=== PATIENT | female | born 1955 | race African-American/Black ===

== ENCOUNTER 2017-03-27 08:13 | Outpatient (CLI) | payer BC ==
[~2017-03-27 08:13] MED LIST: FUROSEMIDE20 M1 ORAL; GERITOL COMPLE1 EACH PO; LEVOTHYROXINE25 MCG ORAL; METFORMIN HCL500 M1 ORAL; PROAIR HFA8.5 GM INH; TRIBENZOR 40-51 EAC1 ORAL
--- NOTE | 2017-03-27 12:31 | Diagnostic Imaging Report ---
Clinical Indication: Abdominal pain. History of partial hysterectomy and tubal ligation Technique: No oral contrast utilized, per emergency room physician request IV administration nonionic contrast. Venous phase spiral acquisition obtained through the abdomen and pelvis. Multiplanar reconstructions were generated. Total dose length product 119 mGycm. CTDIvol(s) 18 mGy. Dose reduction achieved using automated exposure control Comparison: None Findings: The appendix is not definitely visualized, but there are no findings to suggest acute appendicitis. There is colonic diverticulosis. No evidence of diverticulitis. Contrast is seen to traverse the entirety of the small bowel and traverses far as the transverse colon. No small bowel distention or small bowel wall thickening. There are multiple small fat-containing ventral hernias in the region of the umbilicus. There is a fluid attenuation lesion with imperceptible chisholm in the mesenteric root of the right lower quadrant just to the right of midline which measures 5.3 x 3.2 cm. No free intraperitoneal air or fluid demonstrated. There is a small sliding-type hiatal hernia. The stomach, duodenum are unremarkable. The liver, gallbladder, bile ducts, pancreas are unremarkable. The spleen demonstrates multiple granulomatous calcifications. The adrenals are unremarkable. The kidneys demonstrate lobulated contours. The left kidney demonstrates and upper pole calcification which is probably parenchymal. No renal or ureteral calculi, hydronephrosis, hydroureter. The uterus is absent, consistent with stated clinical history. What are presumably right and left ovaries are demonstrated. No pelvic mass or adenopathy. No retroperitoneal or mesenteric mass or adenopathy. The lung bases demonstrate some atelectatic changes on the left. The heart is borderline enlarged. There is a calcified granuloma at the left lung base, measures 1 cm diameter. The bones are unremarkable except for degenerative spondylosis changes. Impression: No acute process Diverticulosis. 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
== END 2017-03-27 10:13 | disposition home or self-care (01) ==
LOC: CAT 08:13
DX: R10.9 Unspecified abdominal pain (principal); K57.90 Diverticulosis of intestine, part unspecified, without perforation or abscess without bleeding; Z90.710 Acquired absence of both cervix and uterus; M47.9 Spondylosis, unspecified; J98.11 Atelectasis; K44.9 Diaphragmatic hernia without obstruction or gangrene; K43.9 Ventral hernia without obstruction or gangrene
CPT/HCPCS: 74177; Q9967